=== PATIENT | female | born 1990 | race Caucasian/White ===

== ENCOUNTER 2016-07-18 02:02 | Emergency (ER) | payer OTHER ==
[~2016-07-18] VITALS: Ht 180.3 cm; Wt 99.8 kg
--- NOTE | 2016-07-18 02:16 | ED GI/GU/ABDOMINAL COMPLAINT ---
History of Present Illness General Chief Complaint: Nausea, Vomiting, Diarrhea Stated Complaint: " V X'S FEW HRS" C/O BACK PAIN Source: patient, old records Exam Limitations: no limitations Vital Signs & Intake/Output Vital Signs & Intake/Output Vital Signs Date Time Temp Pulse Resp B/P B/P Pulse O2 O2 Flow FiO2 Mean Ox Delivery Rate 07/18 0235 96.2 92 18 143/86 97 Room Air Allergies Coded Allergies: No Known Allergies (07/18/16) Triage Nurses Notes Reviewed? yes ? N Is pt currently ? No HPI: Current Sunday patient was moving some boxes and felt a twinge in her right lower back. There is no radiation of pain. The pain is aching in nature. Pain increases with movement. She rates the pain as 7 out of 10. There is no weakness or numbness. No incontinence of bowel or bladder. Patient has been taking Aleve and Tylenol for pain. Tonight she began vomiting. Patient states she has vomited 4 times. There is no blood in her vomitus. She is now getting an uncomfortable feeling in the epigastric area. The pain is constant. There is no radiation. There are no aggravating or mitigating factors. She rates it as a 6 out of 10. Past History Medical History Any Pertinent Medical History? none Surgical History Surgical History: non-contributory Psychosocial History Tobacco Use: Never used ETOH Use: occasional use Illicit Drug Use: denies illicit drug use Family History Hx Contributory? No Review of Systems Review of Systems Constitutional: Reports: no symptoms. EENTM: Reports: no symptoms. Respiratory: Reports: no symptoms. Cardiovascular: Reports: no symptoms. GI: Reports: see HPI, abdominal pain, nausea, vomiting. Genitourinary: Reports: no symptoms. Musculoskeletal: Reports: see HPI, back pain. Skin: Reports: no symptoms. Neurological/Psychological: Reports: no symptoms. Hematologic/Endocrine: Reports: no symptoms. Immunologic/Allergic: Reports: no symptoms. All Other Systems: Reviewed and Negative Physical Exam Physical Exam General Appearance: well developed/nourished, alert, awake, moderate distress Head: atraumatic, normal appearance Eyes: Bilateral: PERRL, EOMI. Ears, Nose, Throat, Mouth: hearing grossly normal, DRY MUCOSA Neck: normal inspection, supple, full range of motion Respiratory: normal breath sounds, chest non-tender, no respiratory distress, lungs clear Cardiovascular: regular rate/rhythm, normal peripheral pulses Gastrointestinal: normal bowel sounds, soft, non-tender, no organomegaly Back: normal inspection, normal range of motion Extremities: normal range of motion Neurologic/Psych: no motor/sensory deficits, awake, alert, oriented x 3, normal gait, normal mood/affect Skin: intact, normal color, warm/dry Core Measures ACS in differential dx? No Severe Sepsis Present: No Septic Shock Present: No Progress Differential Diagnosis: biliary colic, cholecystitis, gastritis, hepatitis, ischemic bowel, inflamm bowel dis, intrauterine , pancreatitis, threatened AB, UTI/pyelo Plan of Care: Orders Procedure Date/time Status LIPASE 07/18 214 Complete HUMAN BETA HCG SCREEN 07/18 214 Complete COMPREHENSIVE METABOLIC PANEL 07/18 214 Complete CBC WITHOUT DIFFERENTIAL 07/18 214 Complete AMYLASE 07/18 214 Complete Current Medications Sig/Tatianna Start time Last Medication Dose Stop Time Status Admin Hyoscyamine 0.125 MG ONCE ONE 07/18 499 UNVr (Levsin) 07/18 500 Ondansetron HCl 4 MG ONCE ONE 07/18 499 UNVr (Zofran) 07/18 500 Laboratory Tests 07/18/16 0254: Anion Gap 15, Estimated GFR > 60, BUN/Creatinine Ratio 30.0 H, Glucose 108 H, Calcium 9.5, Total Bilirubin 0.6, AST 26, ALT 43, Alkaline Phosphatase 66, Total Protein 7.5, Albumin 4.6, Globulin 2.9, Albumin/Globulin Ratio 1.6, Amylase 58, Lipase 227, Total Beta HCG NEGATIVE, CBC w Diff MAN DIFF ORDERED, RBC 4.56, MCV 88.8, MCH 30.3, RDW 12.9, MPV 6.9 L, Gran % 90.4 H, Lymphocytes % 5.9 L, Monocytes % 3.1, Eosinophils % 0.5, Basophils % 0.1, Absolute Granulocytes 12.0 H, Absolute Lymphocytes 0.8 L, Absolute Monocytes 0.4, Absolute Eosinophils 0.1 , Absolute Basophils 0, Platelet Estimate INCREASED, Normocytic RBCs VERIFIED, Normochromic RBCs VERIFIED, PUBS MCHC 34.1 Diagnostic Imaging: Viewed by Me: CT Scan. Discussed w/RAD: CT Scan. Radiology Impression: PATIENT: ALICIA GALLEGO PRESENT AGE: 25 PATIENT ACCOUNT NO: [id number] : 89 LOCATION: [facility] ORDERING PHYSICIAN: NANCY PAUL MD SERVICE DATE: 07/18/16 EXAM TYPE: CAT - CT ABD & PELVIS W IV CONTRAST EXAMINATION: CT ABDOMEN AND PELVIS WITH CONTRAST CLINICAL INFORMATION: Right lower quadrant pain. COMPARISON: None available. TECHNIQUE: Multidetector volumetric imaging was performed of the abdomen and pelvis before and after the IV administration of 94 mL of Optiray 320 intravenous contrast. Sagittal and coronal reformatted images were obtained on the technologist's workstation. FINDINGS: The lung bases are clear. The liver , spleen, adrenal glands, gallbladder, and pancreas are normal. The kidneys exhibit symmetric nephrograms without evidence of hydronephrosis or nephrolithiasis. No focal renal lesions. There are fluid-filled loops of small bowel throughout the entire abdomen, a few of which are mildly dilated within the left upper quadrant however there is no discrete transition point to suggest a high grade bowel obstruction. Findings could be secondary to an underlying an infectious or inflammatory enteritis given mild stranding within the adjacent mesentery. Appendix is normal. There is no free air. The pelvic viscera are normal. No pelvic adenopathy. No free fluid within the pelvis. There are no acute osseous abnormalities. No significant soft tissue abnormality. IMPRESSION: There are fluid-filled loops of small bowel throughout the entire abdomen, a few of which are mildly dilated within the left upper quadrant however there is no discrete transition point to suggest a high grade bowel obstruction. Findings could be secondary to an underlying an infectious or inflammatory enteritis given mild stranding within the adjacent mesentery. Appendix is normal. DICTATED BY: CHICO WEBER MD DATE/TIME DICTATED:07/18/16429 OPERATIONS TEAM LEADER: HENRY DATE/TIME TRANSCRIBED:07/18/16429 CONFIDENTIAL, DO NOT COPY WITHOUT APPROPRIATE AUTHORIZATION. <Electronically signed in Other Vendor System> SIGNED BY: CHICO WEBER MD 07/18/16450 Initial ED EKG: none Departure Departure Disposition: HOME OR SELF CARE Condition: Stable Clinical Impression Primary Impression: Vomiting Qualifiers: Vomiting type: unspecified Vomiting Intractability: non-intractable Nausea presence: with nausea Qualified Code: R11.2 - Nausea with vomiting, unspecified Referrals: PATIENT HAS NO PRIMARY CARE DR (PCP/Family) Additional Instructions: RETURN IF SYMPTOMS WORSEN OR FOR ANY CONCERNS Departure Forms: Customer Survey General Discharge Information Prescriptions: Current Visit Scripts Hyoscyamine (Levsin) 1 TAB PO Q4 PRN ABDOMINAL PAIN #20 TAB Ondansetron (Zofran Odt) 1 TAB SL TID PRN NAUSEA #10 TAB
[2016-07-18 03:04] LABS: ABSOLUTE BASOPHIL COUNT 0 /CUMM (0.0-0.2); ABSOLUTE EOSINOPHIL COUNT 0.1 /CUMM (0.0-0.7); ABSOLUTE LYMPH COUNT 0.8 /CUMM (1.2-3.4); ABSOLUTE MONOCYTE COUNT 0.4 /CUMM (0.10-0.60); BASOPHIL % 0.1 % (0.0-2.0); EOSINOPHIL % 0.5 % (0-5); GRANULOCYTE % 90.4 % (42.2-75.2); HEMATOCRIT 40.5 % (37-47); MEAN CORPUSCULAR HGB 30.3 PG (27.0-31.0); MEAN CORPUSCULAR HGB CONC 34.1 G/DL (33.0-37.0); MEAN CORPUSCULAR VOLUME 88.8 FL (81.0-99.0); MEAN PLATELET VOLUME 6.9 FL (7.4-10.4); PLATELET COUNT 457 /CUMM (130-400); RBC DISTRIBUTION WIDTH 12.9 % (11.5-14.5); RED BLOOD CELL CT 4.56 /CUMM (4.20-5.40); WHITE BLOOD CELL COUNT 13.3 /CUMM (4.8-10.8)
--- NOTE | 2016-07-18 04:51 | CT SCAN REPORT ---
EXAMINATION: CT ABDOMEN AND PELVIS WITH CONTRAST CLINICAL INFORMATION: Right lower quadrant pain. COMPARISON: None available. TECHNIQUE: Multidetector volumetric imaging was performed of the abdomen and pelvis before and after the IV administration of 94 mL of Optiray 320 intravenous contrast. Sagittal and coronal reformatted images were obtained on the technologist's workstation. FINDINGS: The lung bases are clear. The liver, spleen, adrenal glands, gallbladder, and pancreas are normal. The kidneys exhibit symmetric nephrograms without evidence of hydronephrosis or nephrolithiasis. No focal renal lesions. There are fluid-filled loops of small bowel throughout the entire abdomen, a few of which are mildly dilated within the left upper quadrant however there is no discrete transition point to suggest a high grade bowel obstruction. Findings could be secondary to an underlying an infectious or inflammatory enteritis given mild stranding within the adjacent mesentery. Appendix is normal. There is no free air. The pelvic viscera are normal. No pelvic adenopathy. No free fluid within the pelvis. There are no acute osseous abnormalities. No significant soft tissue abnormality. IMPRESSION: There are fluid-filled loops of small bowel throughout the entire abdomen, a few of which are mildly dilated within the left upper quadrant however there is no discrete transition point to suggest a high grade bowel obstruction. Findings could be secondary to an underlying an infectious or inflammatory enteritis given mild stranding within the adjacent mesentery. Appendix is normal.
[2016-07-18] MEDS ORDERED: ZOFRAN ODT4 M1 SL (04:56)
[2016-07-18] MEDS ORDERED: LEVSIN0.125 M1 PO (04:56)
[2016-07-18 05:15] VITALS: BP 125/72
== END 2016-07-18 05:25 ==
LOC: ERH 02:02
PROVIDERS: Emergency Medicine
DX: R11.10 Vomiting, unspecified (principal); M54.5 Low back pain; R10.13 Epigastric pain
CPT/HCPCS: 74177; 96361; 96374; 96375; 96376; J1885; J2405